=== PATIENT | male | born 1965 | race Caucasian/White ===

== ENCOUNTER → 2016-08-13 | Day surgery (SDC) | payer MEDICARE, OTHER ==
[~2016-08-13] MED LIST: AMITRYPTYLINE; FLEXERIL; FLEXERIL PO; FLEXERIL10 MG PO; GLUCOPHAGE500 MG PO; HCTZ; IBUPROFEN PO; KEFLEX PO; LIPITOR40 MG PO; LORTAB 7.5-5001 TAB PO; LYRICA PO; MEDROL PO; METFORMIN HCL500 M1; MOBIC; MOBIC PO; MOBIC15 MG PO; NEURONTIN; NEURONTIN PO; NEURONTIN600 MG; NEXIUM; NEXIUM PO; NIACIN500 M2 PO; OMEPRAZOLE20 M2 PO; PRAVACHOL; ROBITUSSIN S/F118 ML PO; WELLBUTRIN XL150 M1 PO; ZANTAC PO; ZITHROMAX PO; [UNRECOGNIZED DRUG - REMARK]
--- NOTE | ~2016-08-13 | OR ---
Unit #: [id number] #: [id number] Patient: MENA MUNOZ [id number] [address] [address] [id number] O MR#: [id number] NAME: MENA MUNOZ. ROOM: Date of Procedure: 08/13/2016 Admission Date: 08/13/2016 Surgeon: Med Moyer M.D. : 1965 Attending Physician: Med Moyer M.D. Primary Care Physician: Trudy Frank A.P.R.N. OPERATIVE REPORT PROCEDURE PERFORMED Colonoscopy with snare polypectomy. INDICATIONS FOR PROCEDURE A 50-year-old gentleman with average risk for colorectal cancer, here for colonoscopy for the first time. MEDICATIONS Monitored anesthesia. POSTOPERATIVE FINDINGS 1. 5 mm polyp in transverse colon, snared and sent for histopathology. 5 mm polyp in rectum, snared and sent for histopathology. 2. Good prep. 3. No other polyps or masses. PLAN Repeat colonoscopy in 5 years. DESCRIPTION OF PROCEDURE The patient was explained of the procedure, risks, and benefits along with risks and benefits of anesthesia. He was brought to the endoscopy room. Propofol anesthesia was given. Rectal exam was done, which was normal. Colonoscope was lubricated, passed up the rectum, advanced under direct vision all the way to the cecum. Cecum was identified by ileocecal valve and appendiceal orifice. Two polyps were seen as described. There were both snared and sent for histopathology. I retroflexed in the rectum, small hemorrhoids seen. Scope was gently pulled out. He tolerated it well. No major complications were seen. Dictated by... Marco Wagner/reinaldo TD: 08/14/2016 02:15 JOB #: [id number] Unit #: [id number] #: [id number] Patient: MENA MUNOZ OPERATIVE REPORT Page 1 of 1 X Med Moyer MD PROCEDURE OPERATIVE NOTE
== END | disposition home or self-care (01) ==
LOC: COPS 09:02
DX: Z12.11 Encounter for screening for malignant neoplasm of colon (principal); D12.3 Benign neoplasm of transverse colon; K64.9 Unspecified hemorrhoids; I10 Essential (primary) hypertension; E11.9 Type 2 diabetes mellitus without complications; K21.9 Gastro-esophageal reflux disease without esophagitis; Z87.891 Personal history of nicotine dependence; Z87.442 Personal history of urinary calculi; Z88.8 Allergy status to other drugs, medicaments and biological substances; Z79.1 Long term (current) use of non-steroidal anti-inflammatories (NSAID); Z79.2 Long term (current) use of antibiotics; Z79.899 Other long term (current) drug therapy; Z98.890 Other specified postprocedural states
CPT/HCPCS: 82947; 88305